=== PATIENT | female | born 2000 | race African-American/Black ===

== ENCOUNTER 2023-10-05 06:52 | Emergency (ER) | payer OTHER ==
[~2023-10-05] VITALS: Ht 165.1 cm; Wt 54.1 kg
[2023-10-05] MEDS ORDERED: IPRATROPIUM BROM 0.5 MG/2.5ML INH SOL NEB ONE (07:15)
[2023-10-05] MEDS ORDERED: ALBUTEROL SULF 2.5 MG/0.5ML(0.5%) NEB SOLN NEB ONE (07:15)
[2023-10-05 07:32] VITALS: BP 133/102; PULSE 86; RESP 20; TEMP 98.2; O2SAT 98
[2023-10-05] MEDS ORDERED: LORA-622 PO (08:15)
[2023-10-05] MEDS ORDERED: PRED20TA2 PO (08:15)
[2023-10-05] MEDS ORDERED: ALBUAER3 IN (08:15)
== END 2023-10-05 08:17 | disposition home or self-care (01) ==
LOC: ER 06:52
DX: J45.901 Unspecified asthma with (acute) exacerbation (principal); J06.9 Acute upper respiratory infection, unspecified; Z88.8 Allergy status to other drugs, medicaments and biological substances
CPT/HCPCS: 71046; 94640; 99283; J7644

== ENCOUNTER 2024-08-21 10:46 | Emergency (ER) | payer MEDICAID ==
[~2024-08-21] VITALS: Ht 167.6 cm; Wt 53.7 kg
[~2024-08-21 10:46] MED LIST: ALBUAER3 IN; LORA-622 PO; PRED20TA2 PO
[2024-08-21 10:50] VITALS: BP 103/59; PULSE 116
[2024-08-21] MEDS: ALBUTEROL SULF 2.5 MG/0.5ML(0.5%) NEB SOLN NEB ONE (12:05)
[2024-08-21] MEDS: IPRATROPIUM BROM 0.5 MG/2.5ML INH SOL NEB ONE (12:05)
[2024-08-21 12:06] VITALS: RESP 16; O2SAT 100
== END 2024-08-21 13:36 | disposition left against medical advice (07) ==
LOC: ER 10:46
DX: R05.9 Cough, unspecified (principal); R09.81 Nasal congestion; Z53.21 Procedure and treatment not carried out due to patient leaving prior to being seen by health care provider
CPT/HCPCS: 94640